=== PATIENT | female | born 1980 | race Two or more races ===

== ENCOUNTER 2016-11-03 06:17 | Day surgery (SDC) | payer SELFPAY ==
[2016-10-31 13:26] VITALS: BMI 25.0
[2016-11-03] MEDS ORDERED: LIDOCAINE HCL 1%, 10 MG/ML (20ML VIAL) ONE (07:09)
[2016-11-03] MEDS ORDERED: GUM MASTIC/STORAX/MSAL/ALCOHOL 1 DRP DROPSBTL MC ONE (07:10)
[2016-11-03] MEDS ORDERED: EPINEPHrine 1:1,000 1 MG/1 ML - 30ML VIAL (INJECTION) ONE (07:10)
[2016-11-03] MEDS ORDERED: SODIUM BICARBONATE 8.4% 50 MEQ/50 ML VIAL ONE (07:10)
[2016-11-03] MEDS ORDERED: MIDAZOLAM HCL 2 MG/2 ML SINGLE DOSE VIAL ONE (07:10)
[2016-11-03] MEDS ORDERED: PROPOFOL 20 ML ONE ×2 (07:10→09:53)
[2016-11-03] MEDS ORDERED: ceFAZolin SODIUM 1 GM VIAL ONE (07:10)
[2016-11-03] MEDS ORDERED: SUCCINYLCHOLINE CHLORIDE 200 MG/10 ML VIAL ONE (07:10)
[2016-11-03] MEDS ORDERED: DEXAMETHASONE SOD PHOSPHATE 4 MG/1 ML VIAL ONE (07:11)
[2016-11-03] MEDS ORDERED: ONDANSETRON 4 MG/2 ML VIAL ONE (07:11)
[2016-11-03] MEDS ORDERED: LIDOCAINE HCL 2% JELLY (5 ML/TUBE) ONE (07:11)
[2016-11-03] MEDS ORDERED: LIDOCAINE HCL/PF 2% SDV 5ML VIAL ONE (07:11)
[2016-11-03] MEDS ORDERED: ROCURONIUM BROMIDE 50 MG/5 ML VIAL ONE ×3 (07:14→11:33)
[2016-11-03] MEDS ORDERED: SCOPOLAMINE HYDROBROMIDE 1 PATCH PATCH.TD72 ONE (08:08)
[2016-11-03] MEDS ORDERED: HYDROmorphone HCL/PF 1 MG/ML VIAL (FOR PYXIS CHARGING ONLY) ONE ×3 (08:35→11:52)
[2016-11-03] MEDS ORDERED: ePHEDrine SULFATE 50 MG/1 ML AMPULE ONE (11:08)
[2016-11-03] MEDS ORDERED: ONDANSETRON 4 MG/2 ML VIAL IVPUSH PRN (11:13)
[2016-11-03] MEDS ORDERED: OXYCODONE/APAP 5/325MG COMBO TABLET PO PRN (13:48)
[2016-11-03] MEDS ORDERED: ACETAMINOPHEN 325 MG TABLET (FP) PO PRN (13:53)
--- NOTE | 2016-11-03 14:06 | OP ---
Operative Note - Note: Operative Date: 11/03/16 Pre-Operative Diagnosis: Abdominal wall laxity and skin, Ptosis of breasts. Operation: Abdominoplasty, Mastopexy, and lipo of flanks and chin Findings: Laxity of abdominal skin and muscles, Ptosis of breasts. Implants: none Post-Operative Diagnosis: Same as Pre-op Surgeon: Brett Gaxiola It Project Manager: Teresa Adams Anesthesia: General Specimens Removed: Abdominal skin, breast skin and glandular tissue bilaterally Estimated Blood Loss (mls): 100 Drains & Tubes with Location: 15 Jaleel SPENCER drains lower abdomen
[2016-11-03] MEDS: HYDROmorphone HCL CARPU-JECT 1 MG/1 ML DISP.SYRIN IVPUSH PRN ×3 (15:24→23:08)
[2016-11-03] MEDS: LACTATED RINGERS SOLUTION 1,000 ML IV SCH (15:25)
[2016-11-04] MEDS: HYDROmorphone HCL CARPU-JECT 1 MG/1 ML DISP.SYRIN IVPUSH PRN (03:09)
[2016-11-04] MEDS: oxyCODONE HCL 5 MG TABLET PO PRN ×2 (06:20→10:24)
[2016-11-04 06:41] VITALS: BP 121/82; PULSE 84; TEMP 98
[2016-11-04] MEDS: LACTATED RINGERS SOLUTION 1,000 ML IV SCH (11:56)
--- NOTE | 2016-11-06 12:22 | OP ---
DATE OF OPERATION: 11/03/2016 PREOPERATIVE DIAGNOSIS: Abdominal lipodystrophy and breast ptosis. POSTOPERATIVE DIAGNOSIS: Abdominal lipodystrophy and breast ptosis. PROCEDURE PERFORMED: Bilateral breast mastopexy with fat transfer, abdominoplasty. DRAINS: Two 15-mm round Jaleel drains. COMPLICATIONS: None. ESTIMATED BLOOD LOSS: 80 mL. FLUIDS ADMINISTERED: 3.2 L crystalloid solution. DESCRIPTION OF PROCEDURE: The patient was brought to the operating room and placed supine on the operating room table. Sequential compression devices were assured to be functioning appropriately, and all bony prominences were padded. After induction of general endotracheal anesthesia, Neil catheter was placed, and the abdomen and chest were prepped with chlorhexidine solution and draped with sterile drapes. This was completed, and an appropriate time-out was performed identifying the patient, the nature of the procedure, and allowing all participants to ask questions and/or raise concerns as indicated. Once this was completed, the sterile surgical marking pen was used to refresh the preoperative markings on both verticalwise mastopexy incisions, and imprintation of 42-mm cookie cutter was then placed first on the right and then the left side respectively. Beginning on the right side, a No. 15 blade was used to excise around this circumscribed nipple complex as well as the mastopexy outline. De-epithelialization of the interval skin was then performed, and attention was turned to the left side where a similar imprintation, inches, and de-epithelialization was performed. Using Bovie cautery, the superior pedicle was dissected on the right side taking care to elevate the nipple areolar complex in continuity with its superior pedicle vascular blood supply. Once sufficient elevation to accommodate the mastopexy was achieved, it was tacked with interrupted 2-0 Vicryl sutures. Attention was then turned to the left side where similar incisions with a cautery through the breast parenchyma was performed again releasing the superior pedicle until sufficient mobilization was achieved to attach the nipple complex to match the right side. Again, interrupted 2-0 Vicryl suture was used. The pillows on both sides were then closed with interrupted [id number] 2-0 Vicryl suture on both sides sequentially. This completed, skin and redundant tissue were excised along the inframammary fold and passed off the table as specimens. Hemostasis being assured, a layered closure was then completed for the entire breast with 3-0 Monocryl for the deep dermal layer followed by running 4-0 Biosyn subcuticular suture. With this completed, the abdominoplasty was then performed with a large curvilinear incision made from the left anterior superior iliac spine to the right anterior superior iliac spine above and below the umbilicus. The umbilicus was then dissected circumferentially with a No. 10 blade sharply dividing skin and subcutaneous tissues isolating it on its vascular stalk. Fat harvesting on both flanks was completed utilizing the Revolve system for future transfer of the superior pole if needed. Once this was completed, a skin and soft tissue composite flap was elevated centrally to the xiphoid process and laterally to the costal margins. The diastasis was fully exposed and imbricated with a No. 1 Prolene suture sewing this in a locking fashion from the xiphoid to the pubic symphysis. Perimeter sutures of 0 Ethibond were then placed around the umbilicus to tack the central area. This completed, two 15-mm round Jaleel drains were placed through a -type incision secured with 3-0 nylon. Utilizing a flap slitting technique, all skin and redundant tissue was excised, and with the patient in the reflex position, 2-0 Vicryl suture was used to close the Catarina layer followed by interrupted 3-0 PDS to the deep dermal layer. Also a running 4-0 Biosyn V-Lock subcuticular suture was placed. Mastisol and Steri-Strips were applied along all incisions. Lastly, through a small stab incision in the submental area, submental liposuction was also completed. Compression garments were applied including a binder-type bra. She was extubated and transferred to the post anesthesia care unit in stable condition. CELESTE PETIT M.D. [id number]
--- NOTE | 2016-11-07 13:46 | PATH ---
Surgical Pathology Report Patient Name: EYAD RAMIREZ [facility]. Rec. #: [id number] /Age/Gender: 1980 (Age: 35) / F Account: [id number] Location: [facility] Taken: 11/04/2016 Received: 11/06/2016 Reported: 11/07/2016 Physicians: Brett Gaxiola Specimen(s) Received A: LEFT BREAST TISSUE B: RIGHT BREAST TISSUE C: ABDOMEN Clinical History Cosmetic Final Diagnosis A. LEFT BREAST, MASTOPEXY: BENIGN BREAST TISSUE, AND UNREMARKABLE SKIN. B. RIGHT BREAST, MASTOPEXY: UNREMARKABLE SKIN WITH ATTACHED SUBCUTANEOUS ADIPOSE TISSUE. C. SKIN AND SOFT TISSUE, ABDOMEN, ABDOMINOPLASTY: UNREMARKABLE SKIN AND SUBCUTANEOUS ADIPOSE TISSUE (GROSS ONLY). Electronically Signed Shin Mcclure M.D. Gross Description A. Received in formalin, labeled "left breast tissue," is a 78 g, 9.5 x 8.5 x 3.5 cm aggregate of multiple irregular, unoriented portions of fibroadipose tissue and tom, unremarkable skin. Sectioning reveals foci of white fibrous tissue. No definitive masses are identified. [employer] sections are submitted in one cassette. B. Received in formalin, labeled "right breast tissue," is a 23 g, 8.3 x 7.0 x 0.8 cm aggregate of multiple tom, irregular, unremarkable portions of skin. The largest portion displays underlying adipose tissue. No definitive masses are identified. [employer] sections are submitted in one cassette. C. Received in formalin, labeled "abdomen," is a 1065 g, 27.5 x 20.0 x 5.0 cm aggregate of 2 tom, triangular portions of unremarkable skin with underlying soft tissue. Sectioning reveals unremarkable yellow, lobulated adipose tissue. No lesions are identified. No sections are submitted, gross only. DL/11/06/2016 saudi/11/06/2016
== END 2016-11-04 11:45 | disposition home or self-care (01) ==
LOC: FASU 06:17 → FM/S 15:16 → FASU 11-04 11:45
PROVIDERS: ATTEND Surgery Plastic and Reconstructive Surgery
PROC: 0J080ZZ Alteration of Abdomen Subcutaneous Tissue and Fascia, Open Approach (ICD-10-PCS; principal; 2016-11-03 08:00)
PROC: 0H0V07Z Alteration of Bilateral Breast with Autologous Tissue Substitute, Open Approach (ICD-10-PCS; 2016-11-03 08:00)
PROC: 0JB80ZZ Excision of Abdomen Subcutaneous Tissue and Fascia, Open Approach (ICD-10-PCS; 2016-11-03 08:00)
DX: E88.1 Lipodystrophy, not elsewhere classified (principal); N64.81 Ptosis of breast
CPT/HCPCS: 84703; 88300-TC; 88305-TC; 94760